=== PATIENT | female | born 1985 | race Caucasian/White ===

== ENCOUNTER 2019-05-12 00:21 | Emergency (ER) | payer MEDICAID ==
[~2019-05-12] VITALS: Ht 162.6 cm; Wt 86.3 kg
[2019-05-12] MEDS ORDERED: ketorolac trometh inj. 60 MG/2 ML VIAL IM ONE (00:50)
[2019-05-12] MEDS ORDERED: acetaminophen 325mg tablet PO ONE (00:50)
[2019-05-12 01:30] VITALS: BP 104/79
== END 2019-05-12 01:25 | disposition home or self-care (01) ==
LOC: ER 00:22
DX: G43.909 Migraine, unspecified, not intractable, without status migrainosus (principal); H92.09 Otalgia, unspecified ear; Z90.710 Acquired absence of both cervix and uterus
CPT/HCPCS: 82948; 96372; 99283; J1885

== ENCOUNTER 2023-07-31 15:54 | Outpatient (CLI) | payer MEDICAID ==
[~2023-07-31] VITALS: Ht 162.6 cm; Wt 90.7 kg
[2023-07-31] MEDS ORDERED: albuterol 2.5 MG/3 ML nebule NEB ONE (16:20)
[2023-07-31 16:27] VITALS: PULSE 66; RESP 18; O2SAT 96
== END 2023-07-31 23:59 | disposition home or self-care (01) ==
LOC: RT 15:54
PROVIDERS: ATTEND Physician Assistant
DX: R94.2 Abnormal results of pulmonary function studies (principal); R06.2 Wheezing
CPT/HCPCS: 94060; 94760

== ENCOUNTER 2025-05-07 21:45 | Emergency (ER) | payer MEDICAID ==
[~2025-05-07] VITALS: Ht 165.1 cm; Wt 82.0 kg
[2025-05-07 22:06] VITALS: BP 98/65; PULSE 56; O2SAT 97
[2025-05-07 23:43] VITALS: RESP 16
--- NOTE | 2025-05-07 23:51 | RADIOLOGY REPORT ---
EXAM: DI CHEST,SINGLE VIEW CLINICAL HISTORY: Cough TECHNIQUE: Single PA view of the chest WID: COMPARISON: None FINDINGS: Lines and tubes: Prior median sternotomy. Chest: The heart size and pulmonary vasculature is within normal limits. No pleural effusion, pneumothorax, or consolidation. The osseous structures are grossly intact. IMPRESSION: 1. No acute cardiopulmonary abnormality.
--- NOTE | 2025-05-08 00:41 | Physician Documentation ---
History of Present Illness ~ Chief Complaint: Cold, cough & congestion Stated Complaint: COLD SYMPTOMS Time Seen by MD: 00:28 HPI Patient is a 40-year-old female that presents to the emergency department for evaluation of cough cold congestion x5 days. Patient reports that she was seen at her doctor's office yesterday the day before had a COVID and flu test that were negative at that time. Patient reports she is concerned because she has previously gotten pneumonia when she had similar symptoms. Report reports feeling tightness in her chest when she coughs. Denies any chest pain chest pressure radiating chest pain shortness of breath lightheadedness or any other symptoms at this time. Medication Reconciliation Allergies: Coded Allergies: No Known Allergies (Unverified , 05/07/25) Past Medical History Past Medical History: Migraine, *CARDIOVASCULAR* Past Surgical History: hysterectomy Drug Use: none Lives with: Family Lives In: Home Review of Systems ROS As stated above in the HPI, otherwise all systems are reviewed and negative. Physical Exam Vital Signs: Temperature: 97.4, Source: Temporal, Heart Rate: 56, Respiratory Rate: 16, BP: 98/65, Pulse Oximetry: 97, Weight: 82.000 Oxygen Flow Rate: 0 Physical Exam VITALS: Reviewed and as above. GENERAL: Alert, no apparent distress. HEENT: Normocephalic, atraumatic, PERRL, EOMI, dry mucosa, no erythema RESPIRATORY: Lungs clear, normal breath sounds, no respiratory distress. CHEST: No accessory muscle use, no retractions CV: Regular rate, rhythm, no edema, no murmur, No: JVD GI: Soft, non-tender, bowels sounds present, no rebound, guarding, or rigidity BACK: No CVA tenderness, or swelling MUSCULOSKELETAL No deformities, no edema SKIN: Warm and dry, no rash NEURO: Oriented x4, No motor or sensory deficit PSYCH: Normal mood and affect, no agitation Progress Results/Orders Results/Orders Orders - [facility]LOTTE BROWER [employer] Chest,Single View (05/07/25 23:30) Completed Orders - CHARLOTTE BROWER [employer] Chest,Single View (05/07/25 23:30) Vital Signs 05/07/25 05/07/25 22:06 23:43 Temp 97.4 Pulse 56 Resp 20 16 B/P (MAP) 98/65 Pulse Ox 97 O2 Flow Rate 0 Medical Decision Making Additional information obtaine: other Findings This patient presents with symptoms suspicious for likely viral upper respiratory infection. Based on history and physical doubt sinusitis. COVID flu test negative yesterday and her doctor's office. Do not suspect underlying cardiopulmonary process. I considered, but think unlikely, dangerous causes of this patients symptoms to include ACS, CHF or COPD exacerbations, pneumonia, pneumothorax. Patient is nontoxic appearing and not in need of emergent medical intervention. Patient told to self isolate at home until symptoms subside for 72 hours or no fever for greater than 24 hours without Tylenol and ibuprofen. Discussed with patient need to increase your fluids and rest as tolerated. Patient will follow up with her primary care provider if no improvement in symptoms by Saturday. Patient will return to the emergency department with any worsening or recurrent symptoms or any additional concerning symptoms that we discussed here today i.e. chest pain shortness of breath fever chills nausea vomiting dizziness lightheadedness difficulty breathing or any other symptoms that we discussed here today. Tylenol ibuprofen as needed for fevers and discomfort. Please increase your fluids as tolerated. Please follow up with the primary care provider. Please return to the emergency department for worsening or recurrent symptoms or any additional concerning symptoms that we discussed here today. Differential Dx:Considerations: Include: Allergic rhinitis, Influenza, Otitis media, Peritonsillar abscess, Pharyngitis-Diphtheria, Pharyngitis-Streptoccal, Pharyngitis-Viral, Pneumonia, Pnuemonitis, Sinusitis, URI, Other Departure Disposition: 01 HOME / SELF CARE / HOMELESS Impression: Primary Impression: Cough Condition: Stable Discharge Instructions: Upper Respiratory Infection, Adult, Cough, Adult Additional Instructions: This patient presents with symptoms suspicious for likely viral upper respiratory infection. Based on history and physical doubt sinusitis. COVID flu test negative yesterday and her doctor's office. Do not suspect underlying cardiopulmonary process. I considered, but think unlikely, dangerous causes of this patients symptoms to include ACS, CHF or COPD exacerbations, pneumonia, pneumothorax. Patient is nontoxic appearing and not in need of emergent medical intervention. Patient told to self isolate at home until symptoms subside for 72 hours or no fever for greater than 24 hours without Tylenol and ibuprofen. Discussed with patient need to increase your fluids and rest as tolerated. Patient will follow up with her primary care provider if no improvement in symptoms by Saturday. Patient will return to the emergency department with any worsening or recurrent symptoms or any additional concerning symptoms that we discussed here today i.e. chest pain shortness of breath fever chills nausea vomiting dizziness lightheadedness difficulty breathing or any other symptoms that we discussed here today. Tylenol ibuprofen as needed for fevers and discomfort. Please increase your fluids as tolerated. Please follow up with the primary care provider. Please return to the emergency department for worsening or recurrent symptoms or any additional concerning symptoms that we discussed here today. Referrals: NO PRIMARY CARE PROVIDER (PCP) Education Educated: Patient Educated regarding: diagnosis, treatment, need for follow up Signature Scribe Signature: A Attestation: Scribed for Charlotte Brower by PAUL Riddle . 05/08/25 00:45 CHARLOTTE BROWER May 08, 2025 00:41
[2025-05-08 00:53] VITALS: TEMP 97.4
== END 2025-05-08 00:56 | disposition home or self-care (01) ==
LOC: ER 21:46
DX: R05.9 Cough, unspecified (principal); G43.909 Migraine, unspecified, not intractable, without status migrainosus; Z90.710 Acquired absence of both cervix and uterus
CPT/HCPCS: 71045; 99283